=== PATIENT | female | born 1985 | race Caucasian/White ===

== ENCOUNTER → 2019-10-19 10:55 | Outpatient (REF) | payer OTHER, SELFPAY | LOC: ANHLAB 10:55 | PROVIDERS: Visit Provider Nurse Practitioner | DX: D22.5 Melanocytic nevi of trunk (principal) | CPT/HCPCS: 88305 ==

== ENCOUNTER 2022-07-06 08:16 | Outpatient (CLI) | payer OTHER, SELFPAY ==
[2022-07-06 10:10] LABS: Hematocrit 42.7 % (37.0-47.0); Hemoglobin 14.3 g/dL (12.0-15.0); Mean Corpuscular HGB Conc 33.5 g/dl (32-36); Mean Corpuscular Hemoglobin 31.3 pg (26-34); Mean Corpuscular Volume 93.4 fl (80-100); Mean Platelet Volume 10.6 fl (7.4-10.4); Platelet Count Result 224 k/mm3 (150-375); Red Blood Count 4.57 M/mm3 (4.2-5.4); Red Cell Distribution Width 13.1 % (11.5-14.5); White Blood Count 4.5 K/mm3 (4.5-10.0)
[2022-07-06 10:24] LABS: Hemoglobin A1C 4.6 % (<5.7)
[2022-07-06 10:25] LABS: Alanine Aminotransferase 17 U/L (6-35); Albumin Level 4.8 g/dL (3.5-5.1); Alkaline Phosphatase 41 U/L (38-126); Anion Gap 7 mmol/L (8-16); Aspartate Amino Transferase 20 U/L (14-36); Bilirubin,Total 0.7 mg/dL (0.2-1.3); Blood Urea Nitrogen 11 mg/dL (7-17); Calcium 8.7 mg/dL (8.4-10.2); Carbon Dioxide 28 mmol/L (22-30); Chloride 105 mmol/L (98-107); Cholesterol 158 mg/dL (0-200); Estimated Glomerular Filt Rate > 60; Glucose 83 mg/dL (65-110); HDL Direct 51 mg/dL; Potassium 3.7 mmol/L (3.4-5.0); Sodium 140 mmol/L (137-145); Triglycerides 75 mg/dL (<150)
[2022-07-06 10:36] LABS: LDL Cholesterol Direct 78 mg/dL
[2022-07-06 11:03] LABS: Vitamin D 25 Hydroxy 36.5 ng/mL
== END 2022-07-06 08:17 | disposition home or self-care (01) ==
LOC: ANHLAB 08:18
PROVIDERS: Visit Provider Nurse Practitioner
DX: Z01.419 Encounter for gynecological examination (general) (routine) without abnormal findings (principal)
CPT/HCPCS: 36415; 80053; 80061; 82306; 82607; 83036; 85027

== ENCOUNTER 2023-03-06 08:10 | Emergency (ER) | payer OTHER, SELFPAY ==
[2023-03-06] VITALS (14 sets, daily range): BP systolic 130–143; BP diastolic 82–93; PULSE 84–112; RESP 15–27; TEMP 36.8; O2SAT 100
--- NOTE | ~2023-03-06 | XR_ITS ---
Portable chest x-ray Comparison: 12/28/2020 Clinical History: Tachycardia Findings: Lungs are clear, without focal consolidation or pleural effusion. Cardiomediastinal silho uette is stable. Bones and soft tissues are unremarkable. Impression: Clear lungs. Reviewed, dictated and finalized at location . Impression: Clear lungs.
--- NOTE | 2023-03-06 08:24 | ECG_ITS ---
Measurements Intervals [place] Rate: 91 P: 66 NH: 145 QRS: 64 QRSD: 85 T: 40 QT: 367 QTc: 452 Interpretive Statements SINUS RHYTHM POSSIBLE LEFT ATRIAL ENLARGEMENT [-0.1mV P WAVE IN V1/V2] NO PREVIOUS ECG AVAILABLE FOR COMPARISON Electronically Signed On 03-06-2023 11:21:32 CDT by Kianna Gonzales M.D.
[2023-03-06 08:58] LABS: Basophils Percent Auto 0.4 % (0.2-1.2); Eosinophils Absolute Auto 0.1 K/mm3 (0-0.3); Eosinophils Percent Auto 1.2 % (0-4.4); Hematocrit 41.3 % (37.0-47.0); Hemoglobin 13.8 g/dL (12.0-15.0); Immature Granulocyte Absolute 0.03 K/mm3 (0.00-0.031); Immature Granulocyte Percent A 0.4 % (0-0.5); Lymphocytes Absolute Auto 2.02 K/mm3 (0.9-3.2); Lymphocytes Percent Auto 30.1 % (18.3-44.2); Mean Corpuscular HGB Conc 33.4 g/dl (32-36); Mean Corpuscular Hemoglobin 30.9 pg (26-34); Mean Corpuscular Volume 92.6 fl (80-100); Monocytes Absolute Auto 0.3 K/mm3 (0.1-0.6); Monocytes Percent Auto 4.6 % (2.6-8.5); Neutrophils Absolute Auto 4.2 K/mm3 (1.3-6.7); Neutrophils Percent Auto 63.3 % (45.5-73.1); Platelet Count Result 319 k/mm3 (150-375); Red Blood Count 4.46 M/mm3 (4.2-5.4); Red Cell Distribution Width 12.4 % (11.5-14.5); White Blood Count 6.7 K/mm3 (4.5-10.0)
[2023-03-06 09:02] LABS: Glucose Point of Care 112 mg/dl (65-105)
--- NOTE | 2023-03-06 09:03 | PC.NURSE ---
Reported having blood on tissue when wiping after using bathroom. c/o mild pain to LLQ abd.
[2023-03-06 09:12] LABS: Alanine Aminotransferase 15 U/L (6-35); Albumin Level 4.5 g/dL (3.5-5.1); Alkaline Phosphatase 43 U/L (38-126); Anion Gap 11 mmol/L (8-16); Aspartate Amino Transferase 19 U/L (14-36); Bilirubin,Total 0.6 mg/dL (0.2-1.3); Blood Urea Nitrogen 13 mg/dL (7-17); Calcium 8.9 mg/dL (8.4-10.2); Carbon Dioxide 22 mmol/L (22-30); Chloride 106 mmol/L (98-107); Estimated CRCL calculation 88 ml/min; Estimated Glomerular Filt Rate > 60; Glucose 125 mg/dL (65-110); Potassium 3.3 mmol/L (3.4-5.0); Sodium 139 mmol/L (137-145)
[2023-03-06 09:12] LABS: Appearance Urine Clear (Clear); Bacteria Urine 1+ /hpf; Bilirubin Urine Negative (Negative); Blood Urine 3+ (Negative); Color Urine Yellow (Yellow); Glucose Urine UA Negative (Negative); Ketones Urine Trace mg/dL (Negative); Leukocyte Esterase Ur Trace LEU/UL (Negative); Nitrate Urine Negative (Negative); Non Pathogenic Casts 0-2; Protein Urine 1+ mg/dL (Negative); Specific Grav Ur 1.023 (1.001-1.035); Squamous Epithelial Cell Urine Few /hpf (Few); WBC Urine 0-5 /hpf; pH Urine 7.5 (5.0-9.0)
[2023-03-06 09:18] LABS: Add Urine Microscopic? YES
[2023-03-06 09:23] LABS: Troponin I < 0.012 ng/mL (0.000-0.034)
--- NOTE | 2023-03-06 09:26 | ED.SYNCOPE ---
HPI - Syncope General Chief Complaint: Syncope Stated Complaint: near syncopy Time Seen by Provider: 03/06/23 08:23 History of Present Illness HPI narrative: Patient presents with episode of presyncope, she had been coming into work when she felt like she could not catch her breath, chest tightness, felt like her vision was going rodgers, felt like she was going to pass out and could not walk, she mated to her office and got to the floor and felt better, and signed to the ER. Has had similar episode a few weeks ago. Has not had any history of anxiety or panic attacks in the past. Currently feeling asymptomatic other than some suprapubic discomfort, and cramping, she thinks that she might be starting on her period. . Related Data Allergies Allergy/AdvReac Type Severity Reaction Status Date / Time No Known Allergies Allergy Verified 03/06/23 08:37 Review of Systems Review of Systems: CONST: No fever. HEENT: No sore throat C/V: No chest pain RESP: No cough GI: Suprapubic discomfort : Vaginal bleeding M/S: No joint pain. SKIN: No rash. NEURO: [No headache or focal numbness or weakness] PSYCH: [No depression] [facility] Surgical History Surgical History (System 11/04/19 @ 14:19 by Bernadine Coyle) History of section 2014, 2017, 2019 History of D&C 2009 Social History Social History (System 11/04/19 @ 14:19 by Bernadine Coyle) Smoking status: Never smoker Alcohol intake: current Drinks per week: 2 Exam Narrative: EXAMINATION OF ORGAN SYSTEMS/BODY AREAS: Constitutional: Vital signs per nursing GENERAL:[No acute distress, non-toxic appearing.] HEAD: Normal with no signs of head trauma. EYES: EOMI, conjunctiva normal ENT: Hearing grossly intact LUNGS: Nonlabored breathing. HEART: [Regular rate and rhythm] ABD: [Soft], [nontender to palpation] : Scant vaginal bleeding, no cervical motion or adnexal tenderness EXT: Normal range of motion SKIN: [No rashes or lesions.] NEURO: [Alert and oriented x 3. No gross focal sensory or strength deficits.] PSYCH: Normal affect Course Vital Signs Vital signs: Vital Signs Temperature 98.2 F 03/06/23 08:15 Pulse Rate 112 H 03/06/23 08:15 Respiratory Rate 16 03/06/23 08:15 Blood Pressure 141/93 H 03/06/23 08:15 Pulse Oximetry 100 03/06/23 08:15 Temperature 98.2 F 03/06/23 08:15 Pulse Rate 97 03/06/23 10:15 Respiratory Rate 21 H 03/06/23 10:15 Blood Pressure 130/90 03/06/23 09:02 Pulse Oximetry 100 03/06/23 10:15 MDM - Syncope MDM Narrative Medical decision making narrative: 37-year-old female presenting with presyncope, vital signs initially tachycardic then resolved, her symptoms seem consistent with possible anxiety, but I did obtain cardiac work-up to rule out arrhythmia. This is unremarkable, potassium slightly low she is repleted, D-dimer is negative, troponin is negative, she does have a mild UTI and given her suprapubic discomfort I will treat it, I have low concern for any ovarian torsion or other serious etiologies without tenderness. test neg. Chest x-ray negative. EKG - 12-Lead: Performed at 0825. Interpreted by me. [Sinus rhythm]. Rate 91. [Normal] axis. [place]-interval [normal]. QRS duration [normal]. QTc [normal]. [No ST segment elevation or depression]. [T-wave normal]. Impression: No EKG evidence of acute ischemia or dysrhythmia. On reevaluation, patient feeling better, she has no other complaints, vital signs normal, do feel she is stable for outpatient management and she is agreeable to this. I let her know she can return for any further issues and she is agreeable to this. Lab Data 03/06/23 08:49 03/06/23 08:49 Labs: Lab Results 03/06/23 03/06/23 03/06/23 Range/Units 08:29 08:49 08:56 WBC 6.7 (4.5-10.0) K/mm3 RBC 4.46 (4.2-5.4) M/mm3 Hgb 13.8 (12.0-15.0) g/dL Hct 41.3 (37.0-47.0) % MCV 92.6 (80-1
[2023-03-06] MEDS: SODIUM CHLORIDE 0.9% IV 1,000 ML 999 ML IV CONT (09:36)
[2023-03-06 10:42] LABS: D Dimer < 0.27 ug/mL (<0.48)
[2023-03-06] MEDS: POTASSIUM CHLORIDE 20 MEQ ER TABLET 40 MEQ PO (10:50)
[2023-03-06] MEDS: NITROFURANTOIN MONOHYD MACROCR 100 MG CAP PO (10:50)
== END 2023-03-06 10:59 | disposition home or self-care (01) ==
PROVIDERS: Emergency Provider Emergency Medicine
DX: R55 Syncope and collapse (principal); F41.9 Anxiety disorder, unspecified; N39.0 Urinary tract infection, site not specified
CPT/HCPCS: 36415; 71045; 80053; 81001; 81025; 82948; 84484; 85025; 85380; 93005; 96360; 99284; A9270; J7030

== ENCOUNTER 2023-05-24 12:02 | Outpatient (CLI) | payer OTHER, SELFPAY ==
[2023-05-24 12:46] LABS: Free T4 Free Thyroxine 0.94 ng/mL (0.78-2.19)
== END 2023-05-24 12:03 | disposition home or self-care (01) ==
LOC: ANHLAB 12:03
PROVIDERS: PCP Nurse Practitioner Family; Visit Provider Nurse Practitioner Family
DX: F41.9 Anxiety disorder, unspecified (principal); R63.5 Abnormal weight gain
CPT/HCPCS: 36415; 84439; 84443

== ENCOUNTER 2023-08-20 04:58 | Emergency (ER) | payer OTHER, SELFPAY ==
[2023-08-20 05:04] VITALS: BP 148/89; PULSE 88; RESP 18; O2SAT 99
--- NOTE | 2023-08-20 05:14 | ED.GENADULT ---
HPI - General Adult General Chief complaint: Extremity Injury, Lower Stated complaint: ankle pain Time Seen by Provider: 08/20/23 05:07 History of Present Illness HPI narrative: Patient 37-year-old female who presents emergency department chief complaint of right ankle pain. Patient reports that this evening she rolled her right ankle and has pain on the lateral malleolus of the right ankle. The patient reports that has pain whenever she walks patient denies any other injuries denies head injury denies loss of consciousness. Related Data Allergies Allergy/AdvReac Type Severity Reaction Status Date / Time No Known Allergies Allergy Verified 08/20/23 05:04 Review of Systems Review of Systems: A 10 system review of systems was completed on the patient and is negative except for what is stated in the HPI. Nursing and ancillary documentation was reviewed. PMFSH Past Medical History Medical History Anxiety Lung abnormality Chest tube 2005, 2007 Weight gain Surgical History Surgical History H/O tubal ligation History of section 2014, 2017, 2019 History of D&C 2009 Family History Family History Father Heart disease Hypertension Depression Mother Hypertension Depression Grandparent Alcoholism Diabetes mellitus Social History Social History Smoking status: Never smoker Alcohol intake: current Drinks per week: 2 Alcohol use details: occasionally Substance use: never Substance use type: does not use Do You Feel Safe in your Home?: Yes Lack of Transportation: No Lack of Food: Never True Current Housing: I Have Housing Concerned About Future Housing: No Difficulty Paying Gas/Electric Bills: No Difficulty Paying for Meds: No Currently Unemployed: No Education: Associate Degree Difficulty w/ Childcare or Family Care: No Living arrangements: with family Exam Narrative: GENERAL: Well-appearing, well-nourished, and in no acute distress. HEAD: Normocephalic, atraumatic. EYES: PERRLA and EOMI. ENT: Nares clear, no rhinorrhea or epistaxis. Mucous membranes moist. NECK: Supple. CHEST: Clear to auscultation. No respiratory distress. HEART: Regular rate and rhythm. No murmur heard. Normal peripheral pulses. ABDOMEN: Soft, nontender, nondistended, normal active bowel sounds. EXTREMITIES: Normal range of motion. No edema. Tenderness to palpation on the lateral malleolus of the right ankle SKIN: Warm, dry, no rash. NEURO: No focal deficits. Alert and oriented x3. PSYCH: Normal mood and affect. Course Vital Signs Vital signs: Vital Signs Pulse Rate 88 08/20/23 05:04 Respiratory Rate 18 08/20/23 05:04 Blood Pressure 148/89 H 08/20/23 05:04 Pulse Oximetry 99 08/20/23 05:04 Pulse Rate 88 08/20/23 05:04 Respiratory Rate 18 08/20/23 05:04 Blood Pressure 148/89 H 08/20/23 05:04 Pulse Oximetry 99 08/20/23 05:04 Medical Decision Making MDM Narrative Medical decision making narrative: Differential diagnosis includes ankle sprain, ankle fracture, Plain film x-rays of the right ankle showed no evidence of displaced fracture. The patient will be placed an Lucas wrap and crutches will be provided to do weight-bearing as tolerated. Vital Signs Vital Signs: Vital Signs Pulse Rate 88 08/20/23 05:04 Respiratory Rate 18 08/20/23 05:04 Blood Pressure 148/89 H 08/20/23 05:04 Pulse Oximetry 99 08/20/23 05:04 Pulse Rate 88 08/20/23 05:04 Respiratory Rate 18 08/20/23 05:04 Blood Pressure 148/89 H 08/20/23 05:04 Pulse Oximetry 99 08/20/23 05:04 Discharge Plan Discharge Clinical Impression: Right ankle sprain Patient Disposition: Home,
== END 2023-08-20 05:42 | disposition home or self-care (01) ==
PROVIDERS: Emergency Provider Emergency Medicine; PCP Nurse Practitioner Family
DX: S93.401A Sprain of unspecified ligament of right ankle, initial encounter (principal); F41.9 Anxiety disorder, unspecified; W01.0XXA Fall on same level from slipping, tripping and stumbling without subsequent striking against object, initial encounter
CPT/HCPCS: 73610; 99283